=== PATIENT | female | born 1985 | race American Indian/Alaskan Native ===

== ENCOUNTER 2019-08-25 11:16 | Emergency (ER) | payer MEDICAID ==
[2019-08-25 11:50] VITALS: BP 128/85
--- NOTE | 2019-08-25 11:54 | Emergency Department Report ---
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 states she is having right shoulder pain no fall did not hit the ground no numbness or weakness PMHx none no allergies to meds states she took a flexeril on exam: Non toxic appearing, no acute distress atraumatic, normocephalic normal appearance of the eyes, EOMI, no periorbital edema or ecchymosis moist mucus membranes regular heart rate and rhythm, no gallops, no rubs, no murmurs breath sounds are clear bilaterally, no w/r/r ttp over the right trapezius muscle, no AC joint tenderness, no ecchymosis, no crepitus, no sulcus sign, no joint laxity, FROM of the right shoulder, no bony ttp of the right shoulder, no deformity, clavicles are equal, no clavicular ttp, neurovascularly intact A&O x4, no focal neuro deficit skin is warm, dry, intact vitals are normal examination consistent with muscle strain pt is presenting with a non medical emergency at this time, medical screening exam performed and there is no threat to life or limb at this time discussed symptomatic tx and supportive care with pt advised to follow up with orthopedic if symptoms are not improving discussed strict return precautions MSE screening note: Focused history and physical exam performed. ED Disposition for MSE Clinical Impression: Strain of right trapezius muscle Qualifiers: Encounter type: initial encounter Qualified Code(s): S46.811A - Strain of other muscles, fascia and tendons at shoulder and upper arm level, right arm, initial encounter Disposition: MED SCREENING EXAM-LEFT Is pt being admited?: No Does the pt Need Aspirin: No Condition: Stable Instructions: Muscle Strain (ED) Additional Instructions: may take tylenol then ibuprofen every 6-8 hours as needed for discomfort. may use ice pack, heating pad, rest, epsom salt bath. follow up with an orthopedic doctor if symptoms are not improving. return to the emergency room for any new or worsening symptoms Referrals: JAYCE SEALS MD [Staff Physician] - 3-5 Days [facility] [Provider Group] - 3-5 Days Forms: Work/School Release Form(ED) Time of Disposition: 11:56 Print Language: [place]
== END 2019-08-25 12:35 | disposition left against medical advice (07) ==
LOC: ED 11:16
DX: S46.911A Strain of unspecified muscle, fascia and tendon at shoulder and upper arm level, right arm, initial encounter (principal); X58.XXXA Exposure to other specified factors, initial encounter; Y93.89 Activity, other specified; Y92.89 Other specified places as the place of occurrence of the external cause; Y99.8 Other external cause status
CPT/HCPCS: 99282